=== PATIENT | female | born 1975 | race African-American/Black ===

== ENCOUNTER 2016-12-22 23:08 | Emergency (ER) | payer MEDICARE | END 2016-12-23 01:15 | disposition left against medical advice (07) | LOC: D.ER 23:08 | DX: M25.562 Pain in left knee (principal); M25.561 Pain in right knee ==

== ENCOUNTER 2017-02-21 14:43 | Emergency (ER) | payer MEDICARE ==
[2017-02-21 15:15] LABS: BASOPHILS 0.3 % (0-2); EOSINOPHILS 0.1 % (0-7); HEMATOCRIT 37.2 % (36.0-48.0); IMMATURE GRANULOCYTES 0.3 % (0-5); LYMPHOCYTES 39.1 % (15-50); MCH 30.5 pg (26.0-34.0); MCHC 32.3 g/dL (31.0-37.0); MCV 94.7 fL (80.0-100.0); MEAN PLATELET VOLUME 9.7 fL (7.4-10.4); MONOCYTES 6.4 % (2-11); NEUTROPHILS 53.8 % (40-80); PLATELET COUNT 280 10x3/uL (130-400); RBC 3.93 10x6/uL (4.00-5.40); RDW 15.4 % (11.5-14.5); WBC 7.4 10x3/uL (4.8-10.8)
[2017-02-21 15:22] LABS: HCG SERUM NEGATIVE (NEGATIVE)
[2017-02-21 18:01] LABS: APPEARANCE HAZY (CLEAR); BILIRUBIN NEGATIVE (NEGATIVE); COLOR YELLOW (YELLOW); GLUCOSE NEGATIVE (NEGATIVE); KETONE NEGATIVE (NEGATIVE); LEUKOCYTE ESTERASE TRACE (NEGATIVE); NITRITE NEGATIVE (NEGATIVE); PROTEIN NEGATIVE (NEGATIVE); UROBILINOGEN NORMAL (NORMAL)
[2017-02-21 18:02] LABS: BACTERIA MODERATE /hpf (NONE SEEN); EPITHELIAL CELLS 0-5 /hpf (0-5); RED CELLS - URINE 0-5 /hpf (0-5); WHITE CELLS - URINE 0-5 /hpf (0-5)
[2017-02-21 18:22] LABS: ANION GAP 14.2 mmol/L (8-16); CALCIUM 8.7 mg/dL (8.5-10.1); CARBON DIOXIDE 24.7 mmol/L (21.0-32.0); CREATININE - SERUM 0.9 mg/dL (0.6-1.3); POTASSIUM - SERUM 3.9 mmol/L (3.5-5.1); T4 THYROXIN - FREE 0.91 ng/dL (0.76-1.46); THYROID STIMULATING HORMONE 0.6 uIU/mL (0.36-3.74)
== END 2017-02-21 19:04 | disposition home or self-care (01) ==
LOC: D.ER 14:43
PROVIDERS: Emergency Medicine
DX: N93.8 Other specified abnormal uterine and vaginal bleeding (principal)

== ENCOUNTER 2017-06-14 07:20 | Emergency (ER) | payer MEDICARE | END 2017-06-14 08:25 | disposition home or self-care (01) | LOC: D.ER 07:20 | DX: J45.901 Unspecified asthma with (acute) exacerbation (principal) ==

== ENCOUNTER 2018-04-01 13:21 | Emergency (ER) | payer MEDICARE ==
[~2018-04-01] VITALS: Ht 165.1 cm; Wt 121.8 kg
[2018-04-01 13:46] VITALS: Ht 165.1 cm; Wt 121.8 kg
[2018-04-01] MEDS ORDERED: PROAIR HFA8.5 GM (13:47)
[2018-04-01 14:17] LABS: BASOPHILS 0.2 % (0-2); EOSINOPHILS 0 % (0-7); HEMOGLOBIN 13.1 g/dL (12-16); IMMATURE GRANULOCYTES 0.2 % (0-5); LYMPHOCYTES 40.9 % (15-50); MCH 31.6 pg (26.0-34.0); MCHC 33.6 g/dL (31.0-37.0); MEAN PLATELET VOLUME 9.3 fL (7.4-10.4); MONOCYTES 7.4 % (2-11); NEUTROPHILS 51.3 % (40-80); PLATELET COUNT 260 10x3/uL (130-400); RBC 4.15 10x6/uL (4.00-5.40); RDW 14.3 % (11.5-14.5); WBC 6.6 10x3/uL (4.8-10.8)
[2018-04-01 14:39] LABS: ALBUMIN 3.2 g/dL (3.4-5.0); ALKALINE PHOSPHATASE 95 U/L (46-116); ALT (SGPT) 17 U/L (10-68); BILIRUBIN - TOTAL 0.39 mg/dL (0.2-1.3); CALC OSMOLALITY 275 mosm/kg (275-300); CALCIUM 8.3 mg/dL (8.5-10.1); CARBON DIOXIDE 29.6 mmol/L (21.0-32.0); CHLORIDE - SERUM 104 mmol/L (98-107); CREATININE - SERUM 0.8 mg/dL (0.6-1.3); GLUCOSE 95 mg/dL (74-106); POTASSIUM - SERUM 3.6 mmol/L (3.5-5.1); PROTEIN - SERUM 7.3 g/dL (6.4-8.2); SODIUM 139 mmol/L (136-145); UREA NITROGEN 8 mg/dL (7-18); eGFR NON AFRICAN AMERICAN 82 mL/min (90-120)
[2018-04-01 15:10] LABS: CKMB 0.4 U/L (0.0-3.6); CREATINE KINASE 72 UL (21-215)
[2018-04-01 15:14] LABS: TROPONIN-I < 0.017 ng/mL (0.000-0.060)
[2018-04-01] MEDS ORDERED: VENTOLIN HFA18 GM INH (19:49)
[2018-04-01] MEDS ORDERED: MEDROL DOSE PACK4 MG PO (19:49)
[2018-04-01] MEDS ORDERED: ZPAK PO (19:49)
[2018-04-01 20:56] VITALS: BP 126/79
== END 2018-04-01 20:57 | disposition home or self-care (01) ==
LOC: D.ER 13:21
PROVIDERS: Family Medicine
DX: J20.9 Acute bronchitis, unspecified (principal); R06.02 Shortness of breath; F17.200 Nicotine dependence, unspecified, uncomplicated; I49.3 Ventricular premature depolarization